=== PATIENT | female | born 1980 | race African-American/Black ===

== ENCOUNTER → 2016-10-18 | Day surgery (SDC) | payer BC ==
[~2016-10-18] MED LIST: DETROL LA PO; MACROBID100 M1 PO
--- NOTE | ~2016-10-18 | OR ---
Unit #: [id number] #: [id number] Patient: ANGELITO THOMAS [id number] [address] [place], [place] [address] [id number] MR#: [id number] NAME: ANGELITO THOMAS ROOM: Date of Procedure: 10/18/2016 Admission Date: 10/18/2016 Surgeon: Nick Maharaj M.D. : 1980 Attending Physician: Nick Maharaj M.D. OPERATIVE REPORT PREOPERATIVE DIAGNOSES The patient has presented with a history of upper abdominal epigastric pain, postprandial dyspepsia, early satiety, and retrosternal ascending heartburn. In addition, she also mentions history of increasing constipation as well as history of left and right lower quadrant abdominal pain. PROCEDURES PERFORMED Upper gastrointestinal endoscopy and biopsy as well as colonoscopy up to cecum and terminal ileum with excellent preparation and good visualization. POSTOPERATIVE DIAGNOSES For upper endoscopy: The patient had mild focal patchy erosive duodenitis. Otherwise, examination was normal up to third part of duodenum. A biopsy was obtained from the antrum for CLOtest. For colonoscopy: Completely normal examination up to cecum and terminal ileum. The quality of the prep was excellent. No polyps, diverticula, or hemorrhoids were seen. RECOMMENDATIONS 1. The patient is advised to take pantoprazole 40 mg p.o. daily. 2. We will follow up the results of CLOtest in the office in 3 to 4 months' time. 3. She needs a repeat colonoscopy in 10 years. 4. She will also use [id number] daily MiraLAX and p.r.n. Senokot. SEDATION USED MAC. DESCRIPTION OF PROCEDURE Following detailed explanation of potential risks and complications of an upper endoscopy and a colonoscopy, namely perforation, bleeding, and complication related to sedation, the patient was brought to GI lab and laid in the left lateral decubitus position. Lubricated tip of the Olympus video upper endoscope was passed through the bite block into the proximal esophagus under direct vision. The entire esophageal mucosa was examined and appeared normal. Z-line was nicely demarcated, there being no esophagitis or hiatus hernia. The scope was then advanced into the gastric cavity and the latter was insufflated. Mucosa of the fundus, body, and antrum was examined and appeared normal. Pylorus was intubated with visualization of the duodenal bulb. The latter was noted to have Unit #: [id number] #: [id number] Patient: ANGELITO THOMAS mild focal patchy erosive duodenitis. Second and third part of the duodenum were normal. Upon withdrawal and retroflexion, incisura, cardia, and greater curve was examined and biopsy was obtained from the antrum for CLOtest. The scope was then withdrawn in the distal esophagus. The entire esophageal mucosa was examined all the way up to pharynx, no additional findings were noted. The examination table was then turned by 180 degrees and the patient positioned for a colonoscopy. A digital rectal examination was performed, which was normal. Lubricated tip of the Olympus video colonoscope was inserted through the anus and advanced under direct vision. The scope was advanced past rectosigmoid into descending colon. No diverticula were seen in this area. The scope tip was then navigated all the way up to cecum with visualization of the ileocecal valve and the appendiceal orifice. Preparation was excellent with good visualization and photodocumentation was obtained. Last several inches of the terminal ileum were also visualized after intubation of the ileocecal valve and appeared normal. Successive segments of the colonic mucosa were examined upon withdrawal and appeared unremarkable. There being no polyps, mass lesions, AVMs, or diverticula. The patient did not have any hemorrhoids at the anal verge. The scope was then withdrawn and the patient returned to the recovery area. She tolerated the procedure without any postprocedure complications. Dictated by... Nando Francois/beth TD: 10/18/2016 13:47 JOB #: [id number] CC: Nader Martinez M.D. OPERATIVE REPORT X Nick Maharaj MD X PROCEDURE OPERATIVE NOTE
== END | disposition home or self-care (01) ==
LOC: COPS 10:45
DX: K29.80 Duodenitis without bleeding (principal); K59.00 Constipation, unspecified; K21.9 Gastro-esophageal reflux disease without esophagitis; R10.13 Epigastric pain; R68.81 Early satiety; Z90.710 Acquired absence of both cervix and uterus; E66.01 Morbid (severe) obesity due to excess calories; Z68.39 Body mass index [BMI] 39.0-39.9, adult
CPT/HCPCS: 87077; J2250